=== PATIENT | female | born 1975 | race African-American/Black ===

== ENCOUNTER 2019-12-28 08:28 | Inpatient (IN) ==
[2019-12-22 10:57] LABS: Basophils % 0.7 % (0.0-0.8); Eosinophils # 0.1 10*3/uL (0.0-0.87); Eosinophils % 1.3 % (0.00-10.9); Hematocrit 34.1 VOL% (35.7-47.0); Hemoglobin 10.6 GM/DL (12.0-16.0); Immature Granulocytes % 0.4 %; Immature Granulocytes Absolute 0.02 #; Lymphocytes # 1.2 10*3/uL (1.4-4.0); Lymphocytes % 27.1 % (21.3-54.2); Mean Corpuscular HGB Conc 31.1 GM/DL (32-36); Mean Corpuscular Volume 87.9 FL (87-102); Mean Platelet Volume 9.3 FL (9.6-12.0); Monocytes % 10.9 % (1.7-12.7); Neutrophils % 59.6 % (38.7-73.9); Platelet Count 364 T/CUMM (130-400); Red Blood Count 3.88 MC/CUMM (3.8-5.5); Red Cell Distribution Width 15.5 % (9.3-17.3); White Blood Count 4.5 T/CUMM (4-12)
[2019-12-22 11:27] LABS: Apearance,Urine Slightly Hazy (Clear); Bilirubin,Urine Negative (Negative); Blood, Urine Negative (Negative); Glucose,Urine (UA) Negative (Negative); Ketones,Urine Negative (Negative); Mucus,Urine Occasional /LPF (Occasional); Nitrite,Urine Negative (Negative); Protein,Urine Negative; RBC,Urine 5 /HPF (0-4); Squamous Epithelial Cell,Urine Few /HPF (0-10); Urine Color Yellow (Yellow); Urine Specific Gravity 1.012 (1.001-1.035); Urine Urobilinogen < 2.0 EU/DL (0.2-1.0); WBC,Urine 1 /HPF (0-6)
[2019-12-22 11:35] LABS: Albumin 3.7 G/DL (3.4-5.0); Bilirubin,Total 0.8 MG/DL (0.2-1.0); Calcium 9.1 MG/DL (8.5-10.1); Osmolality,Calculated 275.5 MOS/KG (273-304); Risk Ratio 3.17; Total Protein 8.3 G/DL (6.4-8.3); VLDL CHOLESTEROL 9.2 MG/DL
[2019-12-22 12:21] LABS: HIV Antigen/Antibody Result Nonreactive (Nonreactive)
[~2019-12-28 08:28] MED LIST: AMPICILLIN/SULBACTAM 3,000 MG in SODIUM CHLORIDE 0.9% 100 ML IV ONE
[2019-12-28] MEDS ORDERED: LACTATED RINGERS 1,000 ML IV SCH (09:30)
[2019-12-28] MEDS ORDERED: AMPICILLIN/SULBACTAM 3,000 MG VIAL ONE (11:37)
[2019-12-28] MEDS ORDERED: MICROFIBRILLAR COLLAGEN POWDER 1 GM CAN TOP ONE (14:01)
[2019-12-28] MEDS ORDERED: ROPIVACAINE 0.5% 30 ML VIAL ONE (14:23)
[2019-12-28] MEDS ORDERED: DEXAMETHASONE 4 MG/1 ML VIAL ONE (14:23)
[2019-12-28] MEDS ORDERED: LIDOCAINE 1% 5 ML VIAL ONE (14:23)
[2019-12-28] MEDS ORDERED: IBUPROFEN 800 MG TABLET PO PRN (16:59)
[2019-12-28] MEDS ORDERED: BISACODYL 10 MG SUPP RECTAL PRN (16:59)
[2019-12-28] MEDS ORDERED: ONDANSETRON 4 MG/2 ML VIAL IV PRN ×2 (16:59→17:32)
[2019-12-28] MEDS ORDERED: BENZOCAINE/MENTHOL LOZENGE 18/BOX PO PRN (16:59)
[2019-12-28] MEDS ORDERED: MAGNESIUM HYDROXIDE SUSP 30 ML UDCUP PO PRN (16:59)
[2019-12-28] MEDS ORDERED: ACETAMINOPHEN 325 MG TABLET PO PRN (16:59)
[2019-12-28] MEDS ORDERED: HYDROmorphone 2 MG/1 ML VIAL IV PRN ×2 (17:01→17:32)
[2019-12-28] MEDS ORDERED: propofoL 200 MG/20 ML VIAL IV ONE (17:05)
[2019-12-28] MEDS ORDERED: LIDOCAINE 2% 5 ML VIAL ONE (17:06)
[2019-12-28] MEDS ORDERED: DESFLURANE 1 UNIT/15 MINUTE INH ONE (17:06)
[2019-12-28] MEDS ORDERED: fentaNYL 100 MCG/2 ML VIAL ONE (17:06)
[2019-12-28] MEDS ORDERED: MIDAZOLAM 2 MG/2 ML VIAL ONE (17:06)
[2019-12-28] MEDS ORDERED: ONDANSETRON 4 MG/2 ML VIAL ONE (17:06)
[2019-12-28] MEDS ORDERED: KETOROLAC 30 MG/1 ML VIAL ONE (17:06)
[2019-12-28] MEDS ORDERED: GLYCOPYRROLATE 0.4 MG/2 ML VIAL ONE (17:06)
[2019-12-28] MEDS ORDERED: LACTATED RINGERS 1,000 ML IV ONE (17:07)
[2019-12-28] MEDS ORDERED: ROCURONIUM 100 MG/10 ML VIAL IV ONE (17:07)
[2019-12-28] MEDS ORDERED: NEOSTIGMINE 10 MG/10 ML VIAL ONE (17:07)
[2019-12-28] MEDS ORDERED: ACETAMINOPHEN 1,000 MG/100 ML VIAL IV ONE (17:07)
[2019-12-28 17:20] LABS: Apearance,Urine CLEAR (Clear); Bilirubin,Urine Negative (Negative); Blood, Urine Large mg/dL (Negative); Glucose,Urine (UA) Negative (Negative); Ketones,Urine 80 mg/dL (Negative); Mucus,Urine Few /LPF (Occasional); Nitrite,Urine Negative (Negative); Protein,Urine Negative; RBC,Urine 9 /HPF (0-4); Squamous Epithelial Cell,Urine Occasional /HPF (0-10); Urine Color Yellow (Yellow); WBC,Urine 1 /HPF (0-6)
[2019-12-28] MEDS: LACTATED RINGERS 1,000 ML IV SCH (17:54)
[2019-12-28] MEDS ORDERED: KETOROLAC 30 MG/1 ML VIAL IV PRN (19:57)
[2019-12-28] MEDS: ceFAZolin 1,000 MG in SYRINGE 1 EACH IV SCH (22:52)
[2019-12-29] MEDS: LACTATED RINGERS 1,000 ML IV SCH (01:09)
[2019-12-29 01:44] LABS: Basophils % 0.1 % (0.0-0.8); Hemoglobin 8.9 GM/DL (12.0-16.0); Immature Granulocytes % 0.3 %; Immature Granulocytes Absolute 0.03 #; Lymphocytes # 0.4 10*3/uL (1.4-4.0); Mean Corpuscular HGB Conc 31.8 GM/DL (32-36); Mean Corpuscular Volume 88.3 FL (87-102); Mean Platelet Volume 9.3 FL (9.6-12.0); Monocytes % 3.4 % (1.7-12.7); Neutrophils % 92.2 % (38.7-73.9); Platelet Count 350 T/CUMM (130-400); Red Blood Count 3.17 MC/CUMM (3.8-5.5); Red Cell Distribution Width 15.5 % (9.3-17.3); White Blood Count 10.1 T/CUMM (4-12)
[2019-12-29 04:14] LABS: Band Neutrophils 1 % (0-10); Lymphocytes 3 % (20-55); Segmented Neutrophils 95 % (50-85); Total Cells Counted 100
[2019-12-29 04:15] LABS: Anisocytosis 1+; Platelet Estimate Normal
[2019-12-29] MEDS: ceFAZolin 1,000 MG in SYRINGE 1 EACH IV SCH (06:14)
[2019-12-29 08:45] LABS: Hematocrit 25.1 VOL% (35.7-47.0); Hemoglobin 8.3 GM/DL (12.0-16.0); Immature Granulocytes % 0.2 %; Immature Granulocytes Absolute 0.02 #; Lymphocytes # 0.7 10*3/uL (1.4-4.0); Lymphocytes % 8.1 % (21.3-54.2); Mean Corpuscular HGB Conc 33.1 GM/DL (32-36); Mean Platelet Volume 9.5 FL (9.6-12.0); Monocytes % 7.1 % (1.7-12.7); Neutrophils % 84.6 % (38.7-73.9); Platelet Count 330 T/CUMM (130-400); Red Blood Count 2.92 MC/CUMM (3.8-5.5); Red Cell Distribution Width 15.4 % (9.3-17.3); White Blood Count 8.2 T/CUMM (4-12)
[2019-12-29] MEDS: FERROUS SULFATE 325 MG TABLET PO SCH (08:48)
[2019-12-29] MEDS: METOCLOPRAMIDE 10 MG TABLET PO SCH ×3 (08:48→23:55)
[2019-12-29] MEDS: MAGNESIUM HYDROXIDE SUSP 30 ML UDCUP PO SCH ×2 (08:49→20:32)
[2019-12-29] MEDS: DOCUSATE SODIUM 100 MG CAPSULE PO PRN ×2 (08:49→20:33)
[2019-12-30 07:19] VITALS: BP 102/56
[2019-12-30] MEDS: FERROUS SULFATE 325 MG TABLET PO SCH (08:50)
[2019-12-30] MEDS: DOCUSATE SODIUM 100 MG CAPSULE PO PRN (08:50)
[2019-12-30] MEDS: METOCLOPRAMIDE 10 MG TABLET PO SCH (08:58)
[2019-12-30] MEDS: MAGNESIUM HYDROXIDE SUSP 30 ML UDCUP PO SCH (08:59)
== END 2019-12-30 12:01 | disposition home or self-care (01) | DRG 743 ==
LOC: N.OR 08:28 → N.SDSINP 08:31 → N.OB 15:30
PROVIDERS: ADMIT Obstetrics & Gynecology; ATTEND Obstetrics & Gynecology